=== PATIENT | male | born 1985 | race African-American/Black ===

== ENCOUNTER 2025-05-08 01:45 | Emergency (ER) | payer MEDICAID ==
[2025-05-08 01:59] VITALS: PULSE 125; RESP 16; O2SAT 100
== END 2025-05-08 03:16 | disposition left against medical advice (07) ==
LOC: ER 01:45
DX: S00.83XA Contusion of other part of head, initial encounter (principal); Z53.21 Procedure and treatment not carried out due to patient leaving prior to being seen by health care provider; W19.XXXA Unspecified fall, initial encounter; Y93.89 Activity, other specified; Y92.89 Other specified places as the place of occurrence of the external cause; Y99.8 Other external cause status